=== PATIENT | male | born 1960 ===

== ENCOUNTER 2020-12-06 05:30 | Day surgery (SDC) | payer OTHER ==
[2020-12-06] MEDS ORDERED: DUI500 PO (09:44)
[2020-12-06] MEDS ORDERED: ASA325 M1 PO (09:44)
[2020-12-06] MEDS ORDERED: ULTRACET PO (09:44)
== END 2020-12-06 14:10 | disposition home or self-care (01) ==
LOC: CIR.AMB 05:30
PROVIDERS: ATTEND Orthopaedic Surgery
DX: S83.231A Complex tear of medial meniscus, current injury, right knee, initial encounter (principal); S83.271A Complex tear of lateral meniscus, current injury, right knee, initial encounter; M22.41 Chondromalacia patellae, right knee; Z20.822 Contact with and (suspected) exposure to COVID-19